=== PATIENT | male | born 1995 | race Caucasian/White ===

== ENCOUNTER → 2020-07-19 | Day surgery (SDC) | payer MEDICAID, OTHER ==
[~2020-07-19] MED LIST: Midazolam 1 MG/ML 2 ML SDV ONE; Propofol 200 MG/20 ML SDV ONE; Sodium Chloride 0.9% 1,000 ML IV SCH; fentaNYL 100 MCG/2 ML SDV ONE
[2020-07-19 08:00] VITALS: BP 135/75; PULSE 70
[2020-07-19 08:44] LABS: CORONAVIRUS COVID-19 NAA POSITIVE (NEGATIVE)
== END ==
LOC: JP.SDS 07:33
PROVIDERS: ATTEND Surgery
DX: K92.0 Hematemesis (principal); U07.1 COVID-19; R11.0 Nausea; Z53.09 Procedure and treatment not carried out because of other contraindication
CPT/HCPCS: 0241U; J7030; J2250; J2704; J3010

== ENCOUNTER 2021-01-14 23:53 | Emergency (ER) | payer MEDICAID ==
[2021-01-15 00:44] VITALS: BP 121/85; PULSE 90
--- NOTE | 2021-01-15 00:54 | EDM.PDOC ---
ED HPI GENERAL MEDICAL PROBLEM - General Chief Complaint: Upper Extremity Injury/Pain Stated Complaint: RIGHT WRIST INJURY Time Seen by Provider: 01/15/21 00:51 Source of Information: Reports: Patient, Family, RN Notes Reviewed History Limitations: Reports: No Limitations - History of Present Illness INITIAL COMMENTS - FREE TEXT/NARRATIVE: 25-year-old gentleman presents emergency department today with complaint of pain over his right hand he injured himself when he was running up the stairs and injured his hand he has no difficulty with the wrist otherwise no functional com plaints does have some swelling over the right hand Right Wrist Pain Score (Numeric/FACES): 6 - Related Data Allergies Allergy/AdvReac Type Severity Reaction Status Date / Time No Known Allergies Allergy Verified 01/15/21 00:35 Home Meds: Home Meds NK [No Known Home Meds] 01/15/21 [History] Past Medical History HEENT History: Reports: Impaired Vision Other HEENT History: wears contacts Gastrointestinal History: Reports: Other (See Below) Other Gastrointestinal History: throwing up blood Musculoskeletal History: Reports: Fracture Neurological History: Reports: Concussion Dermatologic History: Reports: Other (See Below) Other Dermatologic History: athletes foot - Infectious Disease History Infectious Disease History: Reports: Chicken Pox - Past Surgical History HEENT Surgical History: Reports: None GI Surgical History: Reports: None Musculoskeletal Surgical History: Reports: None Dermatological Surgical History: Reports: None Social & Family History - Family History Family Medical History: No Pertinent Family History - Tobacco Use Tobacco Use Status *Q: Current Every Day Tobacco User Years of Tobacco use: 8 Packs/Tins Daily: 1 - Caffeine Use Caffeine Use: Reports: Soda - Alcohol Use Days Per Week of Alcohol Use: 6 Number of Drinks Per Day: 3 Total Drinks Per Week: 18 - Recreational Drug Use Recreational Drug Use: Yes Recreational Drug Type: Reports: Marijuana/Hashish Recreational Drug Use Frequency: Daily Review of Systems - Review of Systems Review Of Systems: See Below Musculoskeletal: Reports: Hand Pain ED EXAM, GENERAL - Physical Exam Exam: See Below Free Text/Narrative:: Examination of the right hand I do appreciate some edema over the first metacarpal area full range of motion of all digits radial pulses +2 full range of motion of the wrist sensation is intact Exam Limited By: No Limitations General Appearance: Alert, WD/WN, No Apparent Distress Course - Vital Signs Last Recorded V/S: Last Vital Signs Temp 98.2 F 01/15/21 00:38 Pulse 90 01/15/21 00:38 Resp 14 01/15/21 00:38 BP 121/85 01/15/21 00:38 Pulse Ox 96 01/15/21 00:38 - Orders/Labs/Meds Orders: Active Orders 24 hr Category Date Time Status Hand 2V Rt [CR] Stat Exams 01/15/21 00:52 Taken DME for Discharge [COMM] Urgent Oth 01/15/21 01:30 Ordered Meds: Medications Discontinued Medications Generic Name Dose Route Start Last Admin Trade Name Zakia PRN Reason Stop Dose Admin Ketorolac Tromethamine 30 mg 01/15/21 00:57 01/15/21 01:03 Ketorolac 30 Mg/Ml Sdv IM 01/15/21 00:58 30 mg ONETIME ONE Administration Departure - Departure Time of Disposition: 01:32 Disposition: Home, Self-Care 01 Condition: Fair Clinical Impression: Contusion of hand, right Qualifiers: Encounter type: initial encounter Qualified Code(s): S60.221A - Contusion of right hand, initial encounter - Discharge Information Instructions: Hand Contusion, [id number] Referrals: PCP,None [Primary Care Provider] - Forms: ED Department Discharge Additional Instructions: Use Tylenol or Motrin as needed for pain control, continue to use the splint for comfort, continue to use ice to reduce swelling, please followup with your primary care provider in 7-10 days if not better, please call return to the emergency department with worsening of symptoms. Sepsis Event Note (ED) - Evaluation Sepsis Screening Result: No Definite Risk - Focused Exam Vital Signs: Vital Signs Temp Pulse Resp BP Pulse Ox 01/15/21 00:38 98.2 F 90 14 121/85 96 - My Orders Last 24 Hours: My Active Orders 01/15/21 00:52 Hand 2V Rt [CR] Stat 01/15/21 01:30 DME for Discharge [COMM] Urgent - Assessment/Plan Last 24 Hours: My Active Orders 01/15/21 00:52 Hand 2V Rt [CR] Stat 01/15/21 01:30 DME for Discharge [COMM] Urgent Plan: Assessment Acuity = acute Site and laterality = right hand contusion Etiology = trauma Manifestations = none Location of injury = Home Lab values = hand x-ray I did review films myself I cannot appreciate any acute process, the official read from radiology is pending Plan I did review the films with him he is placed in splint he will use ibuprofen as needed for pain control as well as ice follow-up primary care 7 to 10 days for reevaluation if not better This note was dictated using [employer] voice recognition software please call with any questions on syntax or grammar.
[2021-01-15] MEDS ORDERED: Ketorolac 30 MG/ML SDV IM ONE (00:57)
--- NOTE | 2021-01-17 09:36 | CR ---
Hand 2V Rt CLINICAL HISTORY: Injury FINDINGS: There is no acute fracture or dislocation of the hand.
== END 2021-01-15 01:41 | disposition home or self-care (01) ==
LOC: JP.ED 23:53
DX: S60.221A Contusion of right hand, initial encounter (principal); Z72.0 Tobacco use; W10.9XXA Fall (on) (from) unspecified stairs and steps, initial encounter; Y93.02 Activity, running
CPT/HCPCS: 73120; 96372; 99283; J1885